=== PATIENT | male | born 1955 | race Caucasian/White ===

== ENCOUNTER 2017-05-15 08:21 | Inpatient (IN) | payer OTHER ==
[2017-05-15] MEDS ORDERED: morphINE PF 5 MG/10 ML INJ IT ONE (09:02)
[2017-05-15] MEDS ORDERED: GABAPENTIN 300 MG CAP PO ONE (09:02)
[2017-05-15] MEDS ORDERED: ceFAZolin 2 GM/SWFI 2 GM/20 ML SYR IVP ONE (09:02)
[2017-05-15] MEDS ORDERED: ACETAMINOPHEN 500 MG TAB PO ONE (09:02)
[2017-05-15] MEDS ORDERED: LR 1,000 ML IV ONE (09:03)
[2017-05-15] MEDS ORDERED: LIDOCAINE 1% 2 ML INJ ID PRN (09:03)
--- NOTE | 2017-05-15 09:19 | PDHPUP ---
History & Physical Update H&P update statement: This history and physical update is based on an assessment of the patient which was completed after admission or registration (within 24 hours), but prior to the surgery/procedure. H&P update: H&P reviewed & patient examined, no change in patient's condition since H&P completed (Consents signed and site marked. All questions answered. They are willing to proceed with surgery.)
[2017-05-15] MEDS ORDERED: CHLORHEXIDINE GLUC HIBICLENS 118 ML BTL TP ONE (09:22)
[2017-05-15] MEDS ORDERED: BUPIVACAINE 0.25% 30 ML SDV ONE ×2 (09:22→09:23)
[2017-05-15] MEDS ORDERED: THROMBIN (BOVINE) 20,000 UNIT VIAL TP ONE (09:22)
[2017-05-15] MEDS ORDERED: BACITRACIN 50,000 UNITS/10 ML SYR IRR ONE (09:23)
[2017-05-15 09:58] LABS: PLATELET COUNT 210 10^3/uL (150-400)
--- NOTE | 2017-05-15 10:29 | PDANEPAE ---
ANE History of Present Illness 62 yo male for multilevel TLIF. ANE Past Medical History - Cardiovascular History Hx Hypertension: No Hx Arrhythmias: No Hx Chest Pain: No Hx Coronary Artery / Peripheral Vascular Disease: No Hx CHF / Valvular Disease: No Hx Palpitations: No - Pulmonary History Hx COPD: No Hx Asthma/Reactive Airway Disease: No Hx Recent Upper Respiratory Infection: No Hx Oxygen in Use at Home: No Hx Sleep Apnea: No Sleep Apnea Screening Result - Last Documented: Negative - Neurologic History Hx Cerebrovascular Accident: No Hx Seizures: No Hx Dementia: No - Endocrine History Hx Diabetes: No Hypothyroid: No - Renal History Hx Renal Disorders: No Renal History Comment: HX OF KIDNEY STONES - Liver History Hx Hepatic Disorders: No - Neurological & Psychiatric Hx Hx Neurological and Psychiatric Disorders: No - Cancer History Hx Cancer: Yes Cancer History Comment: SKIN - Congenital Disorder History Hx Congenital Disorders: No - GI History Hx Gastrointestinal Disorders: No - Other Health History Other Health History: LUMBAR STENOSIS. RT RETINAL TEAR REPAIRED WITH LASER 2014 - Chronic Pain History Chronic Pain: Yes (LT LEG AND LOWER BACK) - Surgical History Prior Surgeries: LT MIDDLE FINGER RECONSTRUCTION. RT SHLDR BICEPS TENDON/RTC. GABO. LITHOTRIPSY ANE Review of Systems Review of Systems: - Exercise capacity METS (RN): 4 METS - Systems Constitutional: Reports: no symptoms Cardiac: Reports: no symptoms Respiratory: Reports: no symptoms ANE Patient History - Allergies Allergies/Adverse Reactions: alcohol Allergy (Verified 05/15/17 09:05) Anaphylaxis - Home Medications Home Medications: Cholecalciferol Vit D3 [Vitamin D3 2000 units tab (OTC)] 10,000 units PO DAILY 04/25/17 [Last Taken 05/13/17] Herbals/Supplements -Info Only 1 ea PO DAILY 04/25/17 [Last Taken 05/13/17] oxyCODONE IR [Oxycodone Ir (*)] 0.25 - 0.5 tab PO Q8HRS PRN 04/25/17 [Last Taken 05/14/17 20:15] - NPO status NPO Since - Liquids (Date): 05/15/17 NPO Since - Liquids (Time): 08:20 NPO Since - Solids (Date): 05/14/17 NPO Since - Solids (Time): 23:18 - Anes Hx Anes Hx: no prior problems - Smoking Hx Smoking Status: Never smoked Marijuana use: No - Alcohol Use Alcohol Use: Rarely - Family Anes Hx Family Anes Hx: neg - N/A ANE Labs/Vital Signs - Labs Result Diagrams: 05/15/17 09:42 - Vital Signs Blood Pressure: 140/78 Heart Rate: 63 Respiratory Rate: 16 O2 Sat (%): 95 Height: 181.61 cm Weight: 91.626 kg ANE Physical Exam - Airway Neck exam: FROM Mallampati Score: Class 1 Mouth exam: normal dental/mouth exam - Pulmonary Pulmonary: clear to auscultation - Cardiovascular Cardiovascular: regular rate and rhythym - ASA Status ASA Status: II ANE Anesthesia Plan Anesthesia Plan: general endotracheal anesthesia Lines/Monitors: additional IV
[2017-05-15] MEDS ORDERED: MIDAZOLAM 2 MG/2 ML VIAL IVP ONE (10:59)
[2017-05-15] MEDS ORDERED: LIDOCAINE 2% 5 ML SDV ONE (11:17)
[2017-05-15] MEDS ORDERED: ROCURONIUM 50 MG/5 ML VIAL ONE (11:17)
[2017-05-15] MEDS ORDERED: DEXAMETHASONE 4 MG/ML VIAL ONE ×2 (11:17→12:20)
[2017-05-15] MEDS ORDERED: fentaNYL 100 MCG/2 ML INJ ONE ×2 (11:18→14:38)
[2017-05-15] MEDS ORDERED: PROPOFOL/EMULSION 500 MG/50 ML BOTTLE IV ONE ×4 (11:18→13:36)
[2017-05-15] MEDS ORDERED: REMIFENTANIL HCL 1 MG VIAL ONE ×2 (11:21→13:36)
[2017-05-15] MEDS ORDERED: ALBUMIN 5% 250 ML BOTTLE IV ONE (14:04)
[2017-05-15] MEDS ORDERED: ceFAZolin 1 GM VIAL ONE (14:17)
[2017-05-15] MEDS ORDERED: PROPOFOL 200 MG/20 ML VIAL ONE (14:18)
[2017-05-15] MEDS ORDERED: TRANEXAMIC ACID 900 MG in NS 100 ML IV ONE (14:25)
[2017-05-15] MEDS ORDERED: morphINE PF 5 MG/10 ML INJ ONE (14:28)
[2017-05-15] MEDS ORDERED: ONDANSETRON 4 MG/2 ML VIAL ONE (14:38)
[2017-05-15] MEDS ORDERED: DIAZEPAM 10 MG/2 ML SYR IVP PRN (14:57)
[2017-05-15] MEDS ORDERED: ALBUTEROL 3 ML DEYVIAL IH PRN (14:57)
[2017-05-15] MEDS ORDERED: LR 500 ML IV PRN (14:57)
[2017-05-15] MEDS ORDERED: PROMETHAZINE HCL 25 MG/ML INJ IVP PRN (14:57)
[2017-05-15] MEDS ORDERED: OXYCODONE/APAP 5/325 TAB PO PRN (14:57)
[2017-05-15] MEDS ORDERED: NALOXONE HCL 0.4 MG/ML INJ IVP PRN (14:57)
[2017-05-15] MEDS ORDERED: LACTULOSE 20 GM/30 ML UDCUP PO PRN (15:33)
[2017-05-15] MEDS ORDERED: ONDANSETRON 4 MG/2 ML VIAL IVP PRN (15:33)
[2017-05-15] MEDS ORDERED: HYDROmorphONE/DILAUDID 1 MG/ML INJ IVP PRN (15:33)
[2017-05-15] MEDS ORDERED: diphenhydrAMINE 25 MG CAP PO PRN (15:33)
[2017-05-15] MEDS ORDERED: POLYETHYLENE GLYCOL 3350 17 GM PKT PO PRN (15:33)
[2017-05-15] MEDS ORDERED: BISACODYL 10 MG SUPP PR PRN (15:33)
[2017-05-15] MEDS ORDERED: ONDANSETRON DISINTEGRATING 4 MG TAB PO PRN (15:33)
[2017-05-15] MEDS ORDERED: MAGNESIUM HYDROXIDE 30 ML UDCUP PO PRN (15:33)
--- NOTE | 2017-05-15 15:44 | POSTOPPROG ---
Post Op Note Date of Operation: 05/15/17 Surgeon: Keyur Hinojosa Training Professional: Betty Leach PA-C Anesthesiologist: Rowan Anesthesia: GET(General Endotracheal) Pre-op Diagnosis: lumbar stenosis Post-op Diagnosis: lumbar stenosis Indication: back pain, radiculopathy Procedure: L3-5 laminectomy, TLIFs, posterior fusion Findings: Please see dictation Inf/Abcess present in the surg proc area at time of surgery?: No Depth: Organ Space EBL: 100-500 Complications: none Drains: Jim Tran Specimen(s): none PA Addendum - Addendum .: S: Pt awake in PACU, c/o achy back pain O: AAOx3 NAD VSS MAEx4 Motor 5/5 BUE/BLE +LT Incision cdi JPx1 Espinoza in A: 62 yo M s/p L3-5 laminectomy, TLIFs, posterior fusion P: PT/OT Pain management Brace when OOB TEDs, SCDs, lovenox POD#1 Post op xrays pending CHAPARRO espinoza in AM Call NS with any questions D/w Dr Hinojosa
[2017-05-15] MEDS ORDERED: NS W/ 20 KCl/L 1,000 ML IV SCH (15:45)
--- NOTE | 2017-05-15 15:45 | POSTANESTH ---
Post Anesthetic Evaluation Cardiovascular Status: Normal, Stable Respiratory Status: Normal, Stable Level of Consciousness/Mental Status: Can Participate in Eval, Mildly Sleepy, Arousable Pain Control: Adequate, Prn Tx Ordered Nausea/Vomiting Control: Adequate, Prn Tx Ordered Complications Possibly Related to Anesthesia: None Noted
[2017-05-15] MEDS: POLYETHYLENE GLYCOL 3350 17 GM PKT PO SCH ×2 (17:17→22:12)
[2017-05-15] MEDS: ceFAZolin 2 GM/SWFI 2 GM/20 ML SYR IVP SCH (19:44)
[2017-05-15] MEDS: SENNOSIDES/DOCUSATE SODIUM TAB PO SCH (19:45)
[2017-05-15] MEDS: FAMOTIDINE 20 MG TAB PO SCH (19:45)
[2017-05-15] MEDS: oxyCODONE IR 5 MG TAB PO PRN (19:45)
[2017-05-15] MEDS: METHOCARBAMOL 750 MG TAB PO PRN (19:45)
[2017-05-15] MEDS ORDERED: ceFAZolin 2 GM/DEXTROSE 100 ML IV SCH (22:00)
[2017-05-15] MEDS: ACETAMINOPHEN 500 MG TAB PO SCH (22:10)
--- NOTE | 2017-05-16 00:02 | GOP ---
[f rep st] OPERATIVE REPORT DATE OF OPERATION: 05/15/2017 SURGEON: Keyur Hinojosa MD MANUAL LATHE MACHINIST: Ashley Leach PA-C. ANESTHESIA: General. PREOPERATIVE DIAGNOSIS: 1. L3 through L5 lumbar spondylosis with spinal stenosis. 2. Lower extremity radiculopathy. 3. Claudication. 4. Treatment refractory to nonoperative intervention. POSTOPERATIVE DIAGNOSIS: 1. L3 through L5 lumbar spondylosis with spinal stenosis. 2. Lower extremity radiculopathy. 3. Claudication. 4. Treatment refractory to nonoperative intervention. PROCEDURE PERFORMED: 1. Posterior arthrodesis with approach to L3, L4, and L5. 2. Posterolateral fusion with bilateral pedicle screw placement at L3, L4, and L5 from [employer] 4.75 system. 3. Decompressive laminectomy with bilateral medial facetectomies and foraminotomies at L3-L4 and L4-L5. 4. Right-sided L3-L4 transforaminal lumbar interbody fusion with a 7 x 28 mm titanium PEEK Elevate cage filled with morselized autograft and allograft. 5. Right-sided L4-L5 transforaminal lumbar interbody fusion with a 7 x 28 mm titanium PEEK Elevate cage filled with morselized autograft and allograft. 6. Posterolateral fusion on the left between L3 and L5 with morselized autograft and allograft. 7. Use of intraoperative 3D Stealth navigation. 8. Use of intraoperative fluoroscopy, less than 1 hour physician time. 9. Use of neuromonitoring. 10. Use of operative microscope. 11. Injection of preservative-free intrathecal narcotics. FINDINGS: per imaging SPECIMENS: None. ESTIMATED BLOOD LOSS: 500 mL. INDICATIONS: The patient is a 62-year-old gentleman who unfortunately suffers from lower extremity radiculopathy, right greater than left side, with back pain. He had evidence of spinal stenosis, severe in nature at L4-L5 and L3-L4. After discussion of risks, benefits, and treatment alternatives after failing nonoperative intervention, we decided to proceed forth with surgery as described above. DESCRIPTION OF PROCEDURE: Patient was brought to the operating theater and underwent general endotracheal anesthesia without complications. He had Venodynes, JUANI hose, and the appropriate lines placed by Anesthesia. He was flipped prone onto the Jim table. All bony prominences were inspected and padded. The lower lumbar region was prepped and draped in the usual sterile surgical fashion. A time-out was completed per protocol and the patient received antibiotics within 1 hour of incision. Using lateral fluoroscopy and spinal needle, we picked our entry point to the L3 through L5 levels. This was marked in the midline. The incision was then infiltrated with Marcaine with epinephrine. The incision was taken down with the scalpel blade and using the monopolar taken down the midline through the lumbodorsal fascia and a subperiosteal dissection carried to the transverse processes of L3, L4, and L5, bilaterally. Deep retractors were placed to maintain our exposure. We again confirmed our level using lateral fluoroscopy. We attached the 3D Stealth navigation clamp to the spinous process of L4 and completed a 3D Stealth navigation spin. Using 3D Stealth navigation we placed the marine pilot holes for the bilateral pedicle screws into L3, L4, and L5. All holes were manually palpated with no evidence of any cortical breaches. We then tapped and placed 6.5 x 50 mm screws bilaterally into L3 and L5 and 6.5 x 55 mm screws bilaterally in L4. Another 3D Stealth navigation spin demonstrated good placement of the hardware. At this point, the microscope was brought into the field to assist with microscopic dissection and maintain illumination and magnification. Using a combination of the bur tip on the drill bit, Kerrison punches, and Leksell rongeur, we completed decompressive laminectomy with bilateral medial facetectomies at L3-L4, and L4-L5. We also completed foraminotomies on the left side at L3-L4 and L4-L5 until they felt manually opened on palpation. At this point, we completed aggressive facetectomies with foraminotomies on the right side with resection of the pars at L3-L4 and L4-L5. We moved up to the L3 -L4 level where we completed a right-sided L3-L4 diskectomy. We prepared the cartilaginous endplates and measured the interbody space. We placed a 7 x 28 mm titanium PEEK elevate cage filled with morselized autograft and allograft anteriorly toward the midline. We packed additional morcellized autograft into the disk space for the interbody fusion. We let down distraction and moved down to L4-L5, where we completed a right-sided L4-5 diskectomy. We prepared the cartilaginous endplates and measured the interbody space. We placed a 7 x 28 mm titanium PEEK elevate cage filled with morselized autograft and allograft anteriorly toward the midline. We packed additional morcellized autograft in the disk space for interbody fusion. We let down distraction and decorticated the bone on the left side between L3 and L5. We irrigated the wound copiously with bacitracin irrigation. We placed 2 lordotic rods into the heads of the screws between L3 and L5 and secured them down with cap screws, which were then tightened per the stem processing machine operator's setting. This also helped gain some of his lordosis that he did not have on his preoperative images. We then placed morselized autograft and allograft on the left side between L3 and L5 for the posterolateral fusion. We injected preservative-free intrathecal narcotics and left a drain in the subfascial space. The wound was then closed in multiple layers using Vicryl sutures for the deep layers and Dermabond for the skin. The patient's wounds were dressed sterilely. He was flipped supine onto the transfer cart, where he was awakened , extubated, and taken to the recovery room in stable condition. There were no complications and no noted changes on neuromonitoring throughout the procedure. COMPLICATIONS: None. /[id number]/MODL MTDD
[2017-05-16] MEDS: ceFAZolin 2 GM/SWFI 2 GM/20 ML SYR IVP SCH (04:14)
[2017-05-16] MEDS: ACETAMINOPHEN 500 MG TAB PO SCH ×3 (05:33→21:03)
[2017-05-16] MEDS: oxyCODONE IR 5 MG TAB PO PRN ×4 (05:35→18:08)
[2017-05-16] MEDS: METHOCARBAMOL 750 MG TAB PO PRN ×2 (08:59→18:08)
[2017-05-16] MEDS: POLYETHYLENE GLYCOL 3350 17 GM PKT PO SCH ×3 (08:59→21:03)
[2017-05-16] MEDS: FAMOTIDINE 20 MG TAB PO SCH ×2 (08:59→21:03)
[2017-05-16] MEDS: CHOLECALCIFEROL VIT D3 2,000 UNITS TAB/CAP PO SCH (08:59)
[2017-05-16] MEDS: SENNOSIDES/DOCUSATE SODIUM TAB PO SCH ×2 (08:59→21:03)
--- NOTE | 2017-05-16 11:31 | NEUSURGPN ---
Assessment/Plan: A: 62 yo M s/p L3-5 laminectomy, TLIFs, posterior fusion POD#1 P: PT/OT Pain management Brace when OOB TEDs, SCDs, lovenox POD#1 Post op xrays pending DC espinoza MURRAY drain - leave in place, remove tomorrow at noon. Call NS with any questions D/w Dr Hinojosa Subjective: Pt resting in bed, states pain is well managed. Objective: AAOx3 NAD VSS MAEx4 Motor 5/5 BLE +LT MURRAY drain in place Urinary Catheter in Place: Yes Urinary Catheter Indication: Other (Use Comment) (to be removed today) Catheter Insertion Date: 05/15/17 - Physician Discussed Patient with : Ashish Neurosurgery Physical Exam - Vitals, I&O, Labs I and O 05/15/17 05/16/17 05/17/17 05:59 05:59 05:59 Intake Total 4595 650 Output Total 4130 350 Balance 465 300 Weight 91.626 kg Intake: Oral (ml) 1610 650 IV Intake (ml) 2000 IV Infused (ml) 985 NS W/ 20 KCl/L 1,000 ml @ 985 100 mls/hr IV CONT JENNA Rx#:[id number] Output: Urine (ml) 3425 350 Catheter 3425 350 Estimated Blood Loss (ml) 500 MURRAY Drain Output (ml) 205 Back 205 Other: Intake Quantity Yes Yes Sufficient Vital Signs Temp Pulse Resp BP Pulse Ox 37.1 C 82 18 120/68 94 05/16/17 08:00 05/16/17 08:00 05/16/17 08:00 05/16/17 08:00 05/16/17 09:05 Laboratory Results 05/15/17 09:42 ICD10 Worksheet Patient Problems: Problems Problem Status Onset Lumbar stenosis Acute - ICD10 Problem Qualifiers (1) Lumbar stenosis Qualifiers: Neurogenic claudication status: unspecified Qualified Code(s): M48.061 - Spinal stenosis, lumbar region without neurogenic claudication
--- NOTE | 2017-05-16 11:36 | ASMTCMCOM ---
CM Note CM Note Notes: 05/16/2017 Case Management Note Met w/pt and Teodora [phone]. There are no case management d/c needs identified d/t pt age, marital status and family support. Pt is ambulating in room without difficulty per pt. Friends from [employer] are providing meals. Pt brother is coming into town today and will stay for the coming week to support pt and . Case Management d/c poc: home with family support with follow up as directed. Case Management available if needs change. Date Signed: 05/16/2017 11:35 AM Electronically Signed By:Saira Da Silva RN
[2017-05-16] MEDS: ENOXAPARIN 40 MG/0.4 ML SYR SC SCH (15:40)
[2017-05-17] MEDS: oxyCODONE IR 5 MG TAB PO PRN ×2 (05:00→09:35)
[2017-05-17] MEDS: ACETAMINOPHEN 500 MG TAB PO SCH (05:00)
[2017-05-17] MEDS: METHOCARBAMOL 750 MG TAB PO PRN (05:00)
[2017-05-17 07:36] VITALS: BP 108/69; PULSE 82; RESP 14; TEMP 97.9; O2SAT 93
[2017-05-17] MEDS: ENOXAPARIN 40 MG/0.4 ML SYR SC SCH (09:31)
[2017-05-17] MEDS: CHOLECALCIFEROL VIT D3 2,000 UNITS TAB/CAP PO SCH (09:31)
[2017-05-17] MEDS: POLYETHYLENE GLYCOL 3350 17 GM PKT PO SCH (09:32)
[2017-05-17] MEDS: FAMOTIDINE 20 MG TAB PO SCH (09:32)
[2017-05-17] MEDS: SENNOSIDES/DOCUSATE SODIUM TAB PO SCH (09:32)
--- NOTE | 2017-05-17 11:32 | NEUSURGPN ---
Date of Surgery: 05/15/17 Post Op Day: 2 Assessment/Plan: Assessment: 62 yo M s/p L3-5 laminectomy, TLIFs, posterior fusion POD#2 Plan: PT/OT Brace when out of bed TEDs, SCDs, lovenox POD#1 Post op xrays show stable hardware placement DC MURRAY Patient will dc home today Discussed patient with Dr Hinojosa Subjective: Pre op leg pain is better, doing well Objective: MAEx4 Motor 5/5 BLE +LT MURRAY drain in place Dressing CDI Incision intact with dermabond Neuro Check Frequency: per routine Urinary Catheter in Place: No Catheter Insertion Date: 05/15/17 - Physician Discussed Patient with : Ashish Neurosurgery Physical Exam - Vitals, I&O, Labs I and O 05/16/17 05/17/17 05/18/17 05:59 05:59 05:59 Intake Total 4595 2350 Output Total 4130 3265 295 Balance 465 -915 -295 Weight 91.626 kg Intake: Oral (ml) 1610 2350 IV Intake (ml) 2000 IV Infused (ml) 985 NS W/ 20 KCl/L 1,000 ml @ 985 100 mls/hr IV CONT JENNA Rx#:[id number] Output: Urine (ml) 3425 3225 250 Catheter 3425 750 Urinal 2475 250 Estimated Blood Loss (ml) 500 MURRAY Drain Output (ml) 205 40 45 Back 205 40 45 Other: Intake Quantity Yes Yes Sufficient Number of Voids Catheter 1 Urinal 1 1 Number of Stools Urinal 1 Vital Signs Temp Pulse Resp BP Pulse Ox 36.6 C 82 14 108/69 93 05/17/17 07:35 05/17/17 07:35 05/17/17 07:35 05/17/17 07:35 05/17/17 07:35 Laboratory Results 05/15/17 09:42 05/16/17 13:15 ICD10 Worksheet Patient Problems: Problems Problem Status Onset Lumbar stenosis Acute
--- NOTE | 2017-05-17 13:31 | ASDISCHSUM ---
Discharge Information Plan Status:Home with No Needs Medically Cleared to Leave: Discharge Date:05/17/2017 12:39 PM CM D/C Disposition:Home, Routine, Self-Care ADT D/C Disposition:Home, Routine, Self-Care Projected Discharge Date:05/17/2017 12:39 PM Transportation at D/C:Family Discharge Delay Reason: Follow-Up Date:05/17/2017 12:39 PM Discharge Slot: Final Diagnosis: Placement Information Patient Contact Information Contact Name:CHETNA Relationship: Address:[address] Work Phone: [facility]:[place] Alternate Phone: [facility]/Zip Code:[place] [address] Email: Financial Information Financial Class:HMO and PPO Plans Primary Plan Desc:[employer] Primary Plan Number:[id number] Secondary Plan Desc: Secondary Plan Number: Assessment Information [facility] CM Progress Note CM Note CM Note Notes: 05/16/2017 Case Management Note Met w/pt and Teodora [phone]. There are no case management d/c needs identified d/t pt age, marital status and family support. Pt is ambulating in room without difficulty per pt. Friends from [employer] are providing meals. Pt brother is coming into town today and will stay for the coming week to support pt and . Case Management d/c poc: home with family support with follow up as directed. Case Management available if needs change. Date Signed: 05/16/2017 11:35 AM Electronically Signed By:Saira Da Silva RN Intervention Information
== END 2017-05-17 12:39 | disposition home or self-care (01) | DRG 455 ==
LOC: F3N 08:21
PROVIDERS: ADMIT Neurological Surgery; ATTEND Neurological Surgery
PROC: 0SG1071 Fusion of 2 or more Lumbar Vertebral Joints with Autologous Tissue Substitute, Posterior Approach, Posterior Column, Open Approach (ICD-10-PCS; principal; 2017-05-15 10:45)
PROC: 00NY0ZZ Release Lumbar Spinal Cord, Open Approach (ICD-10-PCS; principal; 2017-05-15 10:45)
PROC: 0SG10AJ Fusion of 2 or more Lumbar Vertebral Joints with Interbody Fusion Device, Posterior Approach, Anterior Column, Open Approach (ICD-10-PCS; principal; 2017-05-15 10:45)
PROC: 8E0WXBZ Computer Assisted Procedure of Trunk Region (ICD-10-PCS; principal; 2017-05-15 10:45)
PROC: 4A1004G Monitoring of Central Nervous Electrical Activity, Intraoperative, Open Approach (ICD-10-PCS; principal; 2017-05-15 10:45)
DX: M48.062 Spinal stenosis, lumbar region with neurogenic claudication (principal); M47.28 Other spondylosis with radiculopathy, sacral and sacrococcygeal region
CPT/HCPCS: 82947-QW; 97161-GP; 97165-GO; C1713; J0171; J0690; J1100; J1650; J2250; J2274; J2405; J2704; J3010; P9041